=== PATIENT | male | born 2000 | race Two or more races ===

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

== ENCOUNTER → 2024-05-11 | Emergency (ER) | payer OTHER ==
[~2024-05-11] VITALS: Ht 182.9 cm; Wt 113.4 kg
== END | disposition left against medical advice (07) ==
LOC: ER 02:07
DX: Z53.21 Procedure and treatment not carried out due to patient leaving prior to being seen by health care provider (principal)

== ENCOUNTER 2024-08-19 09:54 | Emergency (ER) | payer OTHER ==
[~2024-08-19] VITALS: Ht 182.9 cm; Wt 113.4 kg
[2024-08-19] MEDS ORDERED: MORPHINE SULFATE 2 MG/ML SYRINGE IV ONE (10:30)
[2024-08-19 10:57] LABS: HEMOGLOBIN 14.3 g/dL (13-16.00); MEAN CELL VOLUME 83.1 fL (80.0-100.00); MEAN CORPUSCULAR HEMOGLOBIN 27.6 pg (27.00-32.0); MEAN CORPUSCULAR HGB CONC 33.3 g/dl (32.0-36.0); PLATELET COUNT 247 K/uL (150-450); RED BLOOD COUNT 5.17 M/uL (4.00-6.00); RED CELL DISTRIBUTION WIDTH 12.3 % (11.5-14.5)
[2024-08-19] MEDS ORDERED: PROPOFOL 10,000 MCG/ML VIAL IV ONE (11:15)
[2024-08-19] MEDS ORDERED: PROPOFOL 10,000 MCG/ML VIAL ONE (11:21)
[2024-08-19] MEDS ORDERED: 0.9 % SODIUM CHLORIDE 1,000 ML IV ONE (11:30)
[2024-08-19 11:39] LABS: BILIRUBIN TOTAL 0.2 mg/dL (0.3-1.2); CALCIUM 9.1 mg/dL (8.5-10.1); CREATININE SERUM 0.88 mg/dL (0.70-1.30); GFR 108.29; GLOBULINA 4.1 G/DL (2.4-3.5); POTASSIUM 3.84 mEq/L (3.5-5.1); TOTAL PROTEIN 8.1 gm/dL (6.4-8.2)
== END 2024-08-19 13:19 | disposition home or self-care (01) ==
LOC: ER 09:54
PROVIDERS: General Practice
DX: S43.035A Inferior dislocation of left humerus, initial encounter (principal); X58.XXXA Exposure to other specified factors, initial encounter; Y93.89 Activity, other specified; Y92.89 Other specified places as the place of occurrence of the external cause; Y99.9 Unspecified external cause status; Z88.6 Allergy status to analgesic agent

== ENCOUNTER 2024-10-29 21:42 | Emergency (ER) | payer OTHER ==
[~2024-10-29] VITALS: Ht 182.9 cm; Wt 113.4 kg
[2024-10-30] MEDS ORDERED: MIDAZOLAM HCL/PF 5 MG/ML VIAL IV STA (00:36)
[2024-10-30] MEDS ORDERED: RINGERS SOLUTION,LACTATED 1,000 ML IV ONE (00:45)
[2024-10-30] MEDS ORDERED: MIDAZOLAM HCL 2 MG/2 ML VIAL IV PUSH STA (01:44)
[2024-10-30] MEDS ORDERED: FLUMAZENIL 0.5 MG/5 ML ML IV ONE (01:45)
[2024-10-30] MEDS ORDERED: DOLOGESIC-DF 51 EACH PO (02:31)
== END 2024-10-30 04:02 ==
LOC: ER 21:42
DX: S43.085A Other dislocation of left shoulder joint, initial encounter (principal); X58.XXXA Exposure to other specified factors, initial encounter; Y93.89 Activity, other specified; Y92.89 Other specified places as the place of occurrence of the external cause; Y99.8 Other external cause status; M25.512 Pain in left shoulder; E11.9 Type 2 diabetes mellitus without complications; Z79.4 Long term (current) use of insulin; Z88.6 Allergy status to analgesic agent

== ENCOUNTER 2025-03-07 14:09 | Emergency (ER) | payer OTHER ==
[~2025-03-07] VITALS: Ht 182.9 cm; Wt 104.3 kg
[~2025-03-07 14:09] MED LIST changes: +DOLOGESIC-DF 51 EACH PO
[2025-03-07] MEDS ORDERED: 0.9 % SODIUM CHLORIDE 1,000 ML IV SCH (16:15)
[2025-03-07] MEDS ORDERED: INSULIN LISPRO 1,000 UNIT/10 ML UNITS SUBCUTANEO ONE ×2 (17:15)
[2025-03-07] MEDS ORDERED: MEDROLPACK PO (17:26)
[2025-03-07] MEDS ORDERED: INSULIN LISPRO PROTAMIN/LISPRO 1,000 UNITS/10 ML UNITS SUBCUTANEO ONE (17:41)
== END 2025-03-07 23:04 | disposition home or self-care (01) ==
LOC: ER 14:09
DX: S43.085A Other dislocation of left shoulder joint, initial encounter (principal); X58.XXXA Exposure to other specified factors, initial encounter; Y93.69 Activity, other involving other sports and athletics played as a team or group; Y92.89 Other specified places as the place of occurrence of the external cause; Y99.8 Other external cause status; M25.512 Pain in left shoulder; E11.9 Type 2 diabetes mellitus without complications; Z79.4 Long term (current) use of insulin; Z88.6 Allergy status to analgesic agent